=== PATIENT | male | born 1970 | race Caucasian/White ===

== ENCOUNTER 2017-01-29 08:56 | Inpatient (IN) ==
[2017-01-29] MEDS ORDERED: LABETALOL IV ONE (09:17)
[2017-01-29] MEDS ORDERED: COZAAR PO ONE (09:18)
[2017-01-29] MEDS ORDERED: NORVASC PO ONE (09:18)
--- NOTE | 2017-01-29 09:44 | Diag Imaging Result Doc PS360 ---
EXAM: CHEST-PORTABLE HISTORY: sob/cp TECHNIQUE: Portable upright AP COMPARISON: None. FINDINGS: The heart is not enlarged. The vessels are not distended. There is atelectasis or an infiltrate in the left base with a small left pleural effusion. IMPRESSION: Left basilar atelectasis with possibly and underlying infiltrate and a small left pleural effusion. Electronically signed by Tank Garvin 01/29/2017 9:42 AM
[2017-01-29 09:47] LABS: BASO% 0.1 % (0.0-0.8); EOS# 0.04 X1000 (0.0-0.7); EOS% 0.3 % (0.0-10.0); HEMATOCRIT 19.5 % (42.0-52.0); IMM GRAN# 0.03 X1000 (0.0-0.04); IMM GRAN% 0.2 % (0.0-0.5); LYMPH# 0.82 X1000 (1.2-3.4); LYMPH% 6.1 % (20.5-51.1); MANUAL DIFF NEEDED? NO; MCH 30.6 PG (27-31); MCHC 35.9 g/dL (33-37); MCV 85.2 FL (81-99); MONO# 0.97 X1000 (0.11-0.59); MONO% 7.2 % (1.7-9.3); MPV 10.5 FL (7.4-10.4); NEUT% 86.1 % (42.2-75.2); PLT 131 X1000 (130-400); RBC 2.29 XMIL (4.7-6.1)
[2017-01-29] MEDS ORDERED: NS 1,000 ML IV ONE (10:02)
--- NOTE | 2017-01-29 10:23 | PROVIDER DOCUMENTATION ---
This chart was entered by Adwoa Reese Scribe, acting as scribe for Yoseph Amaya MD. HPI-Chest Pain - General Chief Complaint: B/P Problems Stated Complaint: elevated bp Time Seen by Provider: 01/29/17 09:10 Source: patient Allergies/Adverse Reactions: Patient Allergies Allergy/AdvReac Type Severity Reaction Status Date / Time No Known Allergies Allergy Verified 01/29/17 09:47 Home Medications: Home Medication List Medication Instructions Recorded Confirmed Last Taken Type NK [No Home Medications] 01/29/17 01/29/17 Unknown History - History of Present Illness-CP Nature of Presenting Problem: Pt is a 46 y/o M presents to the ED with chest pain. Pt states having elevated blood pressure this am. Pt states has been out of HTN medication for 2 mths. Pt denies SOB. Pt denies NV. Pt denies smoking and alcohol use. Location: reports: central Chest Pain Radiation: reports: no radiation Quality of Pain: reports: aching Severity in ED: mild Onset/Duration: other (2 mths) Timing: still present, intermittent Context/Activities at Onset: reports: light activity Modifying Factors: improves with: nothing Associated Symptoms: reports: denies symptoms Nitro Today/Relief: no nitro taken today Aspirin Treatment Today: no aspirin today Similar Symptoms Previously?: Yes (present for 2 mths ) Recently Seen Here or By Another Healthcare Provider: No Review of Systems - Adult - REVIEW OF SYSTEMS - ADULT Constitutional: reports: no symptoms reported Eyes: reports: no symptoms reported Ears, Nose, Mouth & Throat: reports: no symptoms reported Cardiovascular: reports: chest pain, irregular heart rate (tachy). denies: heart murmur Respiratory: reports: no symptoms reported Gastrointestinal: reports: no symptoms reported Genitourinary: reports: no symptoms reported Musculoskeletal: reports: no symptoms reported Integumentary: reports: no symptoms reported Neurological: reports: no symptoms reported Psychiatric: reports: no symptoms reported Endocrine: reports: no symptoms reported Hematologic/Lymphatic: reports: no symptoms reported Allergic/Immunologic: reports: no symptoms reported All Other Systems: Reviewed and Negative Past History - Adult - PAST MEDICAL HISTORY-ADULT Review of Records: reports: Nursing Assessment Review, Medications Reviewed, Social history reviewed & non-contributory. Major Childhood Illnesses: reports: denies history Cardiovascular: reports: HTN Respiratory: reports: denies history Gastrointestinal: reports: denies history Obstetrical/Gynecological: reports: denies history Genitourinary: reports: kidney disease Musculoskeletal: reports: denies history Neurological: reports: denies history Psychiatric: reports: denies history Endocrine/Immune: reports: denies history Other Conditions: reports: denies history - PRIOR SURGERIES/PROCEDURES Surgical/Procedure History: reports: reviewed, not pertinent - IMMUNIZATION STATUS Childhood Immunizations: See Nurse Assessment Flu Vaccine: See Nurse Assessment - FAMILY HISTORY Family History: reviewed, not pertinent - SOCIAL HISTORY Smoking: quit less than 1 year, cigarettes Substance Use: denies Living Situation: family Physical Exam-General - PHYSICAL EXAM-ADULT Initial Vital Signs Reviewed: Yes - CONSTITUTIONAL General Appearance: appears well, alert, no apparent distress. negative: lethargic, slow to respond - EYES Eyes: PERRL/EOMI, pink conjunctivae. negative: pale conjunctivae, sunken eyes - HEAD, EARS, NOSE, MOUTH & THROAT HENMT: normal ENT inspection. negative: angioedema, hearing deficit - NECK Neck: normal inspection. negative: lymphadenopathy, tender lateral - RESPIRATORY Respiratory: chest non-tender, lungs clear, normal breath sounds. negative: crackles, rhonchi - CARDIOVASCULAR Cardiovascular: normal peripheral pulses, tachycardia. negative: regular rate, rhythm, systolic murmur - GASTROINTESTINAL (ABDOMEN) Abdominal Exam: normal bowel sounds, non tender, soft. negative: guarding, rebound - LYMPHATIC Lymphatic: no adenopathy. negative: enlargement, streaking - MUSCULOSKELETAL Back Exam: normal inspection. negative: ecchymosis, swelling Extremity: normal inspection. negative: deformity, erythema, swelling - SKIN Integumentary: normal color, normal turgor, warm/dry. negative: diaphoresis, ecchymosis, erythema, laceration(s), rash - NEUROLOGIC Neurologic: grossly normal. negative: aphasia, facial droop - PSYCHIATRIC Psych/Mental Status: normal mood/affect, oriented x 3. negative: paranoid, tearful Progress - PLAN OF CARE/RESULTS Progress/Plan/Lab Results: Vital Signs - 8 hr 01/29/17 09:01 01/29/17 09:38 01/29/17 09:46 Temperature 98.1 F Pulse Rate 120 H 91 H 67 Respiratory Rate 18 18 20 Blood Pressure 192/119 189/117 148/91 O2 Sat by Pulse Oximetry 100 99 97 Laboratory Results - last 24 hr 01/29/17 09:29 WBC 13.54 H RBC 2.29 L Hgb 7.0 L Hct 19.5 L MCV 85.2 MCH 30.6 MCHC 35.9 RDW Std Deviation 12.4 Plt Count 131 MPV 10.5 H Immature Gran % (Auto) 0.2 Neut % (Auto) 86.1 H Lymph % (Auto) 6.1 L [place] % (Auto) 7.2 Eos % (Auto) 0.3 Baso % (Auto) 0.1 Immature Gran # (Auto) 0.03 Neut # (Auto) 11.67 H Lymph # (Auto) 0.82 L [place] # (Auto) 0.97 H Eos # (Auto) 0.04 Baso # (Auto) 0.01 Orders Category Date Time Status Cardiac Monitoring DIRECTED Care 01/29/17 09:16 Active Saline Loc NOW Care 01/29/17 09:16 Active CHEST-PORTABLE [RAD] Stat Exams 01/29/17 09:17 Completed BLOOD CULTURE [BLDCUL] Stat Lab 01/29/17 09:58 Uncollected CBC WITH ELECTRONIC DIFF [HEME] Stat Lab 01/29/17 09:29 Completed CK PROFILE [SP CHEM] Stat Lab 01/29/17 09:29 Received COMPREHENSIVE METABOLIC PANEL [CHEM] Stat Lab 01/29/17 09:29 Received PRBC [LRPC (RED CELLS)] [BBK] Stat Lab 01/29/17 10:01 Uncollected PRO B-NATRIURETIC PEPTIDE Stat Lab 01/29/17 09:29 Received TROPONIN T Stat Lab 01/29/17 09:29 Received TYPE & SCREEN [BBK] Stat Lab 01/29/17 10:00 Uncollected 0.9% Sodium Chloride Inj [Ns] 1,000 ml Med 01/29/17 10:02 Active IV 150 mls/hr Amlodipine [Norvasc] Med 01/29/17 09:18 Discontinued 5 mg PO NOW ONE Labetalol Med 01/29/17 09:17 Discontinued 20 mg IV NOW ONE Losartan [Cozaar] Med 01/29/17 09:18 Discontinued 100 mg PO NOW ONE EKG [EKG] Stat Ther 01/29/17 09:16 Ordered Result Diagrams: 01/29/17 09:29 - EKG 1 Time of EKG reading by physician:: 09:01 EKG Read and Signed by:: Yoseph Amaya EKG Interpretation (*Must complete 3 of following elements*): Abnormal Rate: 109 Rhythm: sinus tachycardia Comments: voltage criteria for left ventricular hypertrophy - XRAY 1 XRAY Study: Chest Impression: Abnormal (Left basilar atelectasis with possibly and underlying infiltrate and a small left pleural effusion) - CONSULTS/PCP/HOSPITALIST Notification #1 *Consult/PCP/Hospitalist*: DAVIDSON Carter for Hospitalist Time Discussed: 10:04 (Dr. Moncada accepted admit ) Reason/Comments: Dr. Amaya consults with LINDA Carter about Pt Consult Disposition: Admit Departure - Departure Date of Disposition Decision: 01/29/17 Time of Disposition Decision: 10:05 DIAGNOSIS: Anemia, Pleural effusion, left Disposition: ADMITTED INPATIENT 09 Certified Medical Emergency: Emergent Condition: Stable Referrals and Follow-Ups: Hillary Yin MD [Primary Care Provider] - - Critical Care Note This patient required my direct & personal management of CC.: Yes Total Time (mins): 30 Critical Care Statement: This patient required my direct personal management to treat or rule out processes, the absence of which, could potentiallly result in sudden, clinically significant life or limb threatening deterioration. Attestation - Physician/ CHEMO Attestation Patient care was provided by Advanced Practice Provider:: No The physician spent face to face time with patient:: Yes Advanced Practice Provider documentation review:: Supervising physician onsite and consulted in the evaluation and care of this patient. The physician did have a face to face encounter with the patient. This chart was documented by the indicated scribe, (Adwoa Reese Scribe) and accurately reflects the services I performed and decisions made by me, Yoseph Amaya MD, as attested by the provider's signature.
[2017-01-29 10:27] LABS: ALBUMIN 4.1 g/dL (3.5-5.0); POTASSIUM 3.7 mmol/L (3.5-5.1); TOTAL BILIRUBIN 0.46 mg/dL (0.20-1.00); TOTAL PROTEIN 6.4 g/dL (6.3-8.3)
[2017-01-29 10:34] LABS: CALCIUM 6.4 mg/dL (8.8-10.2)
[2017-01-29 10:54] LABS: CK INDEX 0.3 (0.0-2.5); CK-MB 3.21 ng/mL (0.0-5.0)
[2017-01-29 11:43] LABS: IRON SATURATION 9 %; TIBC 223 ug/dL; TOTAL IRON 21 ug/dL (53-167); UNBOUND IRON 202 ug/dL (112-346)
[2017-01-29 11:44] LABS: ACETAMINOPHEN < 1.2 ug/mL (10-30); HDL 37 mg/dL (35-55); LDL 113 mg/dL; TRIGLYCERIDES 145 mg/dL (39-160); VLDL 29 mg/dL
[2017-01-29 11:46] LABS: MAGNESIUM 2.1 mg/dL (1.5-2.7)
[2017-01-29 11:53] LABS: FREE T4 1.03 ng/dL (0.93-1.70)
[2017-01-29] MEDS ORDERED: CALCIUM GLUCONATE IV PUSH ONE (12:11)
[2017-01-29] MEDS ORDERED: ASPIRIN PO ONE (12:12)
[2017-01-29] MEDS ORDERED: CALCIUM GLUCONATE 2 GM in NS 100 ML IV ONE ×2 (12:15→12:30)
--- NOTE | 2017-01-29 12:35 | EKG Report ---
Test Performed on : 01/29/2017 09:01:10 AM Test Reason : Chest Pain Blood Pressure : / mmHG Vent. Rate : 109 BPM Atrial Rate : 109 BPM P-R Int : 124 ms QRS Dur : 076 ms QT Int : 378 ms P-R-T Axes : 021 009 023 degrees QTc Int : 509 ms Sinus tachycardia. Voltage criteria for left ventricular hypertrophy Abnormal ECG No previous ECGs available Unconfirmed Result
[2017-01-29] MEDS: SODIUM BICARBONATE 8.4% 150 MEQ in D5W 1,000 ML IV SCH (13:36)
--- NOTE | 2017-01-29 14:32 | Diag Imaging Result Doc PS360 ---
US RENAL 2 (RETROPER) COMPLETE - 01/29/2017 INDICATION: tulio on ckd TECHNIQUE: COMPARISON: 05/25/2014, 04/13/2014 FINDINGS: The kidneys are diffusely, severely hyper echogenic now. Renal sizes remain grossly normal. No hydronephrosis or mass. The right kidney measures 9.8 x 3.2 x 3.3 cm. The left kidney measures 10.2 x 3.6 x 4.5 cm. Cortex measures 7 mm bilaterally. The urinary bladder is normal. IMPRESSION: Severe bilateral hyperechogenic kidneys compatible with chronic medical renal disease. Electronically signed by Jhoan Cooper 01/29/2017 2:30 PM
--- NOTE | 2017-01-29 14:48 | HISTORY AND PHYSICAL ---
PCP: Dr. Hillary Yin. CHIEF COMPLAINT: Hypertension and lower back pain. HISTORY OF PRESENT ILLNESS: Mr. Major is a 46-year-old male with a history of IgA nephropathy and hypertension, which is untreated. The patient reports having been followed by Dr. Bangura for the past few years for IgA nephropathy. He has been on antihypertensives and steroids. However, over the past year, he stopped taking his medications as he felt he was doing much better in regards to his blood pressure and "kidney numbers." Over the past 2 or 3 days, he has been complaining of some mid to low back pain, which is intermittent in nature and nonradiating. He actually went to the chiropractor today for evaluation. Chiropractor examined him, did a blood pressure and sent him to the ER, as it was greater than 200/ 100. The patient has also been reporting some orthopnea, PND, and exertional dyspnea. He denies, however, any lower extremity edema or chest pain. When he got to the ER today, he had labs and diagnostics done. His creatinine was noted to be 21.8 with a BUN of 140 with a estimated GFR of 2. He was also noted to be acidotic and anemic. Troponins were also noted to be 0.326. Creatine kinase 91 with a normal index and a proBNP of greater than 35,000. EKG did not show any signs of ischemia, otherwise LVH noted. Chest x-ray showed small left pleural effusion. Given the severity of his renal failure, we are going to put him in the ICU step-down , consult with Dr. Bangura. PAST MEDICAL HISTORY: 1. IgA nephropathy. 2. Hypertension. 3. Medical noncompliance. SURGICAL HISTORY: Renal biopsy. SOCIAL HISTORY: Patient quit smoking 7 years ago. He denies alcohol, tobacco, or drug use currently. He has 1 child, whom he lives with and works at [employer]. FAMILY HISTORY: Father is at the bedside. He has no medical problems. Mother with a history of arthritis. He has a distant history of hypertension and CVA. REVIEW OF SYSTEMS: Fourteen-point review of systems obtained and found to be negative with the exception of the HPI. HOME MEDICATIONS: None. ALLERGIES: None. PHYSICAL EXAMINATION: VITAL SIGNS: Blood pressure is 153/104, heart rate 70, respiratory rate 18, O2 saturation 95% on room air, temperature is 98.1 degrees. GENERAL: This is a chronically ill-appearing 46-year-old male, lying in hospital bed in no acute distress. NEUROLOGIC: The patient is awake, alert, and oriented. He follows commands without focal deficits. HEENT: Head is atraumatic and normocephalic. His pupils are equal, round, and reactive to light. Conjunctiva are pale. Oral mucosa is a bit dry and pale. Oropharynx is clear. Trachea is midline. There is JVD noted with hepatic jugular reflux. CHEST: Diminished at the bases, otherwise clear to auscultation. CARDIOVASCULAR: Regular rate and rhythm. S1, S2 is noted. No murmurs. GI: Soft, nondistended, and nontender. Bowel sounds positive. EXTREMITIES: No edema, clubbing, or cyanosis. Pulses 1+ bilaterally. DIAGNOSTIC DATA: Chest x-ray: Small left pleural effusion. EKG: Sinus rhythm , LVH. No acute ST or T abnormalities. WBC 13.54, hemoglobin 7, hematocrit 19.5, platelet count 131, sodium 132, potassium 3.7, chloride 86, CO2 16, anion gap 30, BUN 140, creatinine 21.8. Calcium 6.4. T bilirubin 0.46, AST 17, ALT 11, alkaline phosphatase 7.6. CK 921, troponin 0.326. ProBNP greater than 35,000. Albumin 4.1. ASSESSMENT AND PLAN: 1. Acute on chronic renal failure: This is likely secondary to medical noncompliance and IgA nephropathy. We are going to check comprehensive urine studies and renal ultrasound and consult with Dr. Bangura. He is anemic, but his potassium is acceptable. He is acidotic for which we are starting a bicarbonate drip. 2. Back pain with elevated troponins: We are going to check an echocardiogram and consult Cardiology. It is unlikely that his troponins are 2/2 true coronary ischemia , but rather volume overload 2/2 renal failure. With that said, we will trend troponins and order an aspirin. 3. Normocytic anemia: This is likely secondary to his chronic kidney disease. He denies any melena or abdominal pain for that matter. Occult testing is negative. We are checking iron studies. He has been typed and crossed for 2 units as well. 4. Left-sided pleural effusion: Again, this is likely secondary to volume overload with renal failure. Dr. Bangura has been consulted. The patient will likely need dialysis, which should alleviate this issue. 5. Elevated anion gap metabolic acidosis: Again, likely secondary to renal failure but we will go ahead and order acetone, acetaminophen, lactic acid, and the venous blood gas. 6. Hypocalcemia: This is with a normal albumin. So we will go ahead and give him 2 amps of calcium gluconate. Check vitamin D, phosphorus, and magnesium levels as well. 7. Deep venous thrombosis prophylaxis. We will add sequential compression devices and thromboembolic prophylaxis consists of graduated support stockings given the fact that he might need a tunneled dialysis catheter. Once that is done, we can start him on heparin. Dictated by DAVIDSON Alexis for Gopi Perez MD Addendum: Patient seen and examined by myself. Agree with DAVIDSON note. It reflects my assessment and plan. Patient admitted for worsening renal failure and back pain. Patient was being followed by Dr. Bangura for IgA nephropathy but he skip his appointments. Will get Dr. Bangura on board. Because of anemia will order 2 units of blood. Will replete calcium as well. Will continue to monitor closely. cc: DAVIDSON Alexis MD [facility]
[2017-01-29 17:06] LABS: ALLEN TEST YES; BE -7.3 mmoll (-3.0-3.0); BLOOD TYPE ARTERIAL; DRAW SITE R RADIAL; METHB 0.7 % (0.0-1.5); O2(CT) 10.2 mL/dL (15.0-23.0); PCO2(98.6) 26 mmHg (35-45); PO2(98.6) 73 mmHg (60-100); SAMPLE BLOOD; THB 7.5 g/dL (11.5-17.4); pH(98.6) 7.41 (7.35-7.45)
[2017-01-29 17:08] LABS: MODALITY ROOM AIR
--- NOTE | 2017-01-29 17:28 | CONSULTATION ---
DATE OF CONSULTATION: 01/29/2017 IMPRESSIONS: 1. Atypical chest discomfort. 2. Abnormal cardiac enzyme profile with CPK of 921 with a CK-MB of 3.21 and an index of 0.3. Troponin nonspecific elevated. Suspect noncardiac profile. 3. Renal failure. 4. Reported history of IgA nephropathy. 5. Hypertension, poorly controlled. 6. Noncompliance. RECOMMENDATIONS: 1. Followup serial cardiac enzymes. 2. Echocardiography. 3. PA and lateral chest x-ray. HISTORY: This 46-year-old white male with a past history of vasculitis, IgA nephropathy, and hypertension was admitted because of severe hypertension. He actually started having severe back discomfort yesterday. Discomfort is described as dull and in the posterior thorax. Discomfort seemed to be worse lying down and also worse with deep breath. He went to a chiropractor for evaluation and was noted to be markedly hypertensive. He was subsequently referred to the emergency room. His chest discomfort has improved. His back discomfort has improved. He has not done anything strenuous over the past several days. He has not had any vomiting or diarrhea. He has been out of any hypertensive medications for several months. He relates having some blood work done for an infection a few years ago and was found to have kidney disease. He had evaluation which included a renal biopsy and reportedly had vasculitis. PAST MEDICAL HISTORY: 1. 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 2. Hypertension. 3. Medical noncompliance. MEDICATIONS: Prior to admission as listed. He has been out of his antihypertensive medication for several months now. ALLERGIES: No known drug allergies. SOCIAL HISTORY: He works at [employer] in the [place]. He does not smoke, having quit 7 years ago. He does not use alcohol. FAMILY HISTORY: Negative for premature coronary disease. REVIEW OF SYSTEMS: Pulmonary: Negative for dyspnea or cough. Gastrointestinal: Noncontributory beyond history present illness. Constitutional: Noncontributory beyond history of present illness. Remainder of review of systems negative/noncontributory beyond history present illness with 14 total systems reviewed. PHYSICAL EXAMINATION: General: This is a well-developed, adult male, in no distress, on room air. Vital signs: Blood pressure 147/93, heart rate 90. HEENT: Extraocular movements appear intact. Mucous membranes are moist. Neck: Supple with normal jugular is pressure evident on inspection of the neck veins. Chest: Clear to auscultation. Cardiac Exam: Reveals a regular rate and rhythm without appreciable murmur or gallop. Abdomen: Soft, nontender. Extremities: Without edema. Peripheral pulses are intact symmetrically and bilaterally in both radials and pedal pulses, as well as carotid pulses. Neurologic: Reveals him to be alert, fully oriented. Speech is fluent. Moves all 4 extremities equally well. Skin: Warm and dry. Psychiatric: Reveals mood to be appropriate. DIAGNOSTIC DATA: ECG demonstrates sinus rhythm and voltage criteria for left hypertrophy. LABORATORY DATA: Includes BUN 140, creatinine 21.8, calcium 6.4, albumin 4.1, phosphorus 11.1. CPK 921, CPK-MB 3.21, CPK-MB index 0.3. Troponin T 0.331. cc: Moe Bautista MD
--- NOTE | 2017-01-29 18:12 | CONSULTATION ---
DATE OF CONSULTATION: 01/29/2017 REASON FOR ADMISSION: Hypertension. REASON FOR CONSULTATION: Acute kidney injury. CONSULTING PHYSICIAN: Dr. Amaya. HISTORY OF PRESENT ILLNESS: Mr. Major is a 46-year-old white male who is known to our outpatient services for chronic kidney disease stage 4. Patient was last seen in our office in August 2015. At that time he was under our treatment for nephrotic syndrome secondary to IgA nephropathy. Patient's blood pressure had been controlled on diltiazem, losartan hydrochlorothiazide and spironolactone. He was also given Lasix 40 mg b.i.d. for his swelling. His initial proteinuria was 13 g. During the visit his labs indicated his microalbumin protein level was 2.7 g. He was to continue on prednisone weaning himself from 20 mg daily down to 5 mg and to be followed up in our office in April. Patient had cancelled that appointment and no further appointments were made. Upon questioning the patient, he indicated that he had quit taking his prednisone at that time. He also had quit taking his blood pressure medications about the same period of time. He states that he has been feeling well up to this point at which time he says last Sunday he started with nausea and vomiting. This continued through Sunday and states he started feeling better. He developed a mid back pain, new onset by Sunday. He states that this was not getting better and he went to see his chiropractor this a.m. His mother had driven him secondary to patient being weak. She asked them to take his blood pressure and it was found to be severely elevated. The chiropractor recommended that he be taken to [facility] for evaluation. Once in the emergency room, it was found that his BUN was 140 with a creatinine of 21.8, CPK of 921, elevated troponins, low calcium of 6.4, hemoglobin 7, white count 13.54. Chest x-ray showed left pleural effusions with questionable infiltrates bilateral. Patient has not been taking his blood pressure medications according to him. This has been for at least the last 2-3 months. Upon further questioning he thinks it may have been closer to April the last time he was taking his blood pressure medications. He has a history of hypertension. Blood pressure upon evaluation was 153/104. He was given Cozaar 100 mg p.o. in the emergency room along with labetalol. He was given calcium gluconate for his calcium of 6.4. He is currently receiving an IV bolus of 500 mL normal saline and then is to be started on D5W with 3 amps of sodium bicarbonate at 75 ml/hr. Patient is currently lying in bed. His family is at the bedside. He denies chest pain though he did state that yesterday he had a new onset of chest pain without radiation. Some increased work of breathing associated with this and slight diaphoresis. He did not present with these symptoms to the emergency department. He felt that this might be getting better. Upon further questioning, he has no further nausea or vomiting in the last 24 hours. New onset chest pain with increased work of breathing. No increased lower extremity swelling. No fever or chills, no diarrhea, nausea or emesis. PAST MEDICAL HISTORY: Patient has known chronic kidney disease stage 4, last baseline creatinine of 2.94 from labs on 12/28/2015, history of hypertension, nephrotic syndrome, anemia of chronic disease, iron deficiency anemia, heavy proteinuria, noncompliance. SURGICAL HISTORY: None noted. FAMILY HISTORY: Maternal grandmother has history of hypertension, cardiac disease, previous stroke. Maternal uncle has a previous stroke. No noted kidney disease. SOCIAL HISTORY: The patient is a previous smoker, quit approximately 1 year ago. Denies any alcohol or illicit drug use. Lives with family. ALLERGIES: Listed as no known drug allergies. HOME MEDICATIONS: Patient is currently on no home medications. Previous medication list in our office was listed as spironolactone, Zocor, omeprazole, diltiazem, vitamin D 3, Lasix, Tums, prednisone, clonidine, losartan hydrochlorothiazide, Taztia XT, and he was to started on ferrous sulfate. REVIEW OF SYSTEMS: Times 10 with pertinent positives listed above in the HPI. PHYSICAL EXAMINATION: Vital Signs: Temperature 98.1 degrees, blood pressure 147/93, heart rate 90s, respiration 18. He is currently on room air, last recorded saturation 95% . General: This is a 46-year-old white male. He is currently resting in bed. He appears chronically ill though he is in no acute distress. Skin: Warm and dry. HEENT: Normocephalic, atraumatic. Conjunctiva is very pale. Pupils are equal and reactive to light. Mucous membranes are dry. Neck: Supple. Trachea midline. No evidence of JVD. Cardiovascular: Regular rate and rhythm. No murmur or gallop appreciated. Lungs: Clear to auscultation anteriorly. Equal excursion. He remains on room air. Abdomen: Round, soft, nontender. Positive bowel sounds. Extremities: Have no edema. No clubbing or cyanosis. Genitourinary: Not inspected. Patient states that he has been voiding adequate amounts. Neurological: He is alert and oriented x 3. LABS: Sodium 132, potassium 3.7, chloride is 86, CO2 16, BUN 140, creatinine 21.8, glucose 103. His anion gap is 30, calcium 6.4, phosphorus 11.1, albumin 4.1, magnesium 2.1. White count 13.54, hemoglobin 7, hematocrit 19.5 with a platelet count of 131,000. Patient has an elevated CPK of 921, positive troponin. EKG completed in ER shows low voltage with sinus tachycardia. Chest x- ray completed shows left pleural effusions with questionable bilateral infiltrates to the bases. Consult has already been placed to Dr. Bautista for cardiology and our office for nephrology[place] [address], percent saturations of 9 with a ferritin of 1271. TSH 2.46 , free T4 1.03. Urine electrolytes are pending. Urine eosinophils are pending. Renal ultrasound pending. ASSESSMENT AND PLAN: 1. Acute kidney injury on chronic kidney disease stage 4. Patient has not been seen in our office in the past year secondary to cancellations. He has been noncompliant in continuing his medications. He is now hypertensive. We are awaiting urine electrolytes. He has his blood pressure better controlled. He have IV fluid resuscitation in progress. We will check a renal ultrasound. We will make the patient NPO this evening and we will re- evaluate his labs. Secondary to his noncompliance and worsening of his renal function, we have indicated that if there is no improvement in the morning, he may possibly need to have a tunnel catheter placed and start the patient on hemodialysis. Patient states understanding. There is a very little affect in regards with this statement, though he does state understanding. 2. Electrolytes. These basically remain stable. 3. Acid base balance. Patient is to be started on sodium bicarbonate drip at 75 mL an hour. 4. Anemia. Patient has 2 units of packed red blood cells ordered. 5. Chest pain with onset of shortness of breath and diaphoresis. Dr. Bautista is currently waiting to go into the room to talk with the patient. Echocardiogram has been ordered. EKG: Sinus tachycardia, nonspecific. 6. Hypertension. Patient has been treated with Norvasc, labetalol and Cozaar in the emergency room, and is slowly responding. No indications for intervention from our perspective. I would like to thank you for allowing us to follow with this patient. Dictated by DAVIDSON Pittman for Kwan Bangura MD Data reviewed, discussed with Luis Angel Loredo on 01/29/17. I agree with the above assessment and plan of care. cc: DAVIDSON Pittman MD [facility]
[2017-01-29 23:46] LABS: CK INDEX 0.4 (0.0-2.5); CK-MB 2.6 ng/mL (0.0-5.0)
[2017-01-30] MEDS: SODIUM BICARBONATE 8.4% 150 MEQ in D5W 1,000 ML IV SCH ×2 (03:29→19:13)
[2017-01-30 03:42] LABS: INR 1.08; PROTIME 11.4 Seconds (9.2-11.7)
[2017-01-30 03:57] LABS: HEMATOCRIT 23.3 % (42.0-52.0); HEMOGLOBIN 8.5 g/dL (14.0-18.0); MCH 30.5 PG (27-31); MCHC 36.5 g/dL (33-37); MCV 83.5 FL (81-99); MPV 10.9 FL (7.4-10.4); RBC 2.79 XMIL (4.7-6.1)
[2017-01-30 04:17] LABS: CK INDEX 0.3 (0.0-2.5); CK-MB 2.15 ng/mL (0.0-5.0)
[2017-01-30 04:21] LABS: ALBUMIN 3.2 g/dL (3.5-5.0); POTASSIUM 3.3 mmol/L (3.5-5.1)
[2017-01-30 04:30] LABS: CALCIUM 5.9 mg/dL (8.8-10.2)
[2017-01-30] MEDS ORDERED: CALCIUM GLUCONATE 2 GM in NS 100 ML IV ONE (06:00)
--- NOTE | 2017-01-30 08:20 | PROGRESS NOTE ---
DATE: 01/30/2017 SUBJECTIVE: Patient reports feeling fine. Denies any difficulty in breathing. She has some chest tightness, not requiring any oxygen supplementation. OBJECTIVE: Vital Signs: Temperature 98.6, heart rate 97, respiratory rate 12, blood pressure 176/100, O2 sats 93% on room air. General: This is a chronically ill-looking 46-year-old male, lying in bed, in no acute distress. HEENT: Head is normocephalic and atraumatic. Neck: Supple. No JVD noted. No carotid bruits. No lymphadenopathy. Cardiovascular Exam: S1, S2 heard. No murmurs, gallops, or rubs. Regular rate and rhythm. Respiratory: Clear bilaterally to auscultation. No work of breathing. He is not using any accessory muscles. Abdomen: Soft, nontender to palpation. Bowel sounds present. No organomegaly. Extremities: No clubbing, cyanosis, or edema. Peripheral pulses present in both legs. Neurological: Patient alert and oriented x3. Moves 4 extremities. Cranial nerves 2-12 grossly normal. LABORATORY DATA: White cell count 11.02, hemoglobin 8.5, hematocrit 23.3, platelets 153,000. The BMP shows sodium 132, potassium 3.3, chloride 83, bicarbonate 18, BUN 143, creatinine 20.7, calcium 5.9. Troponin is 0.20, and proBNP is greater than 35,000. ASSESSMENT AND PLAN: 1. Acute on chronic renal failure. That is most likely secondary to noncompliance. Patient has been followed by Dr. Bangura for IgA nephropathy. The labs from today did not show any improvement. The patient reports that he is not making any urine for the last 2 days. The renal ultrasound done yesterday shows severe bilateral hyperechogenic kidneys compatible with chronic medical renal disease. There is no obstructive uropathy. I think, at this point, this patient may need dialysis, but will definitely leave the decision to start dialysis. Dr. Bangura's help is appreciated. 2. Chest discomfort. The patient was complaining of chest discomfort that could be secondary to volume overload secondary to acute renal failure. In any case, troponins has been checked, and has been higher. Cardiology has been consulted. We will recommend to continue with follow with serial cardiac enzymes, and an echocardiogram has been ordered. 3. Anemia of chronic disease. It could be most likely related to this chronic kidney disease. He has received 2 units of blood yesterday, and hemoglobin is today 8.5. We will continue checking CBC. 4. Left-sided pleural effusion, most likely secondary to volume overload secondary to renal failure. Dr. Bangura has been consulted. 5. Elevated anion gap metabolic acidosis secondary to renal failure. We will continue to check BMP daily. 6. Hypocalcemia. Patient has received 2 g of calcium gluconate this morning. We are going to check a calcium tomorrow. 7. Deep vein thrombosis prophylaxis on sequential compression devices. cc: Gopi Perez MD
[2017-01-30] MEDS: NORVASC PO SCH ×2 (08:35→21:14)
--- NOTE | 2017-01-30 12:47 | Diag Imaging Result Doc PS360 ---
EXAM: CHEST-2 VIEWS HISTORY: chest pain TECHNIQUE: Two views COMPARISON: 01/29/2017 FINDINGS: There are small bilateral pleural effusions with basilar atelectasis. The heart is not enlarged. The pulmonary vessels are small. No consolidation. IMPRESSION: Small pleural effusions with basilar atelectasis. Electronically signed by Tank Garvin 01/30/2017 12:45 PM
--- NOTE | 2017-01-30 14:10 | PROGRESS NOTE ---
DATE: 01/30/2017 SUBJECTIVE: Patient continues without chest discomfort or dyspnea. OBJECTIVE: Vital Signs: Blood pressure 151/92, heart rate 103 and regular. Oxygen saturation 92% on room air. There is no significant jugular venous distention. Chest: Clear to auscultation. Cardiac Exam: Reveals a regular rate and rhythm without appreciable murmur or gallop. There is no evidence of peripheral edema. LABORATORY DATA: Includes followup CPK 643, CPK MB 2.15 and CPK MB index of 0.3. Troponin followup is 0.249. Echocardiography pending. IMPRESSION: 1. Recent atypical back discomfort. Resolved. 2. Abnormal cardiac enzyme profile most consistent with noncardiac etiology. 3. Renal failure with 2 reported history of IgA nephropathy. 4. Hypertension. RECOMMENDATIONS: Follow up echocardiography. cc: Moe Bautista MD
--- NOTE | 2017-01-30 15:32 | ECHO REPORT ---
ORDER DATE: 01/29/2017 INDICATION: Chest pain. Elevated blood pressure. Elevated cardiac enzymes. Anemia. FINDINGS: 1. Right atrium is normal in size at 3.5 cm. 2. Mild tricuspid regurgitation. RV systolic pressure of 41. 3. Normal RV size and systolic function. 4. Mild pulmonic insufficiency. 5. Normal left atrial size at 3.6. 6. No mitral valve prolapse. Moderate mitral regurgitation is identified. 7. Normal LV size, end-diastolic dimension of 4.6. Normal wall thicknesses with a posterior and interventricular septal thickness of 1 cm each. There is borderline normal LV systolic function. The estimated EF is 50%. There are no obvious segmental wall motion abnormalities. 8. The aortic valve opens well. It is trileaflet. No evidence of stenosis or insufficiency. 9. The aorta appears normal in visualized segments. 10. There is a suggestion of a very small pericardial effusion which is primarily in the anterior position. There is no evidence of tamponade-type physiology. cc: MD Saji Young CRNP
[2017-01-31 05:40] LABS: HEMATOCRIT 24.5 % (42.0-52.0); HEMOGLOBIN 8.9 g/dL (14.0-18.0); MCHC 36.3 g/dL (33-37); MCV 85.4 FL (81-99); MPV 10.4 FL (7.4-10.4); RBC 2.87 XMIL (4.7-6.1)
[2017-01-31 06:17] LABS: ALBUMIN 3.2 g/dL (3.5-5.0); POTASSIUM 3.2 mmol/L (3.5-5.1)
--- NOTE | 2017-01-31 06:18 | PROGRESS NOTE ---
DATE: 01/30/2017 TIME SEEN: 0800. SUBJECTIVE: Mr. Major is resting quietly in bed. Head of the bed is elevated. He remains n.p.o. His parents are at his bedside. He denies chest pain. No increased work of breathing. OBJECTIVE: His most recent vital signs: Temperature 98.8 degrees, blood pressure 161/92, heart rate 91, respirations 18. He is on room air. Last recorded saturation 93%. He has had 1657 he states that he has not voided since his admission. LABORATORY DATA: Sodium 132, potassium 3.3, chloride 83, CO2 of 18, BUN 143, creatinine 20.7, glucose 109. Anion gap 18 calcium 5.9, phosphorus 11, albumin 3.2. White count 11.02, hemoglobin 8.5, hematocrit 23.3, with a platelet count of 153,000. His ProTime is 11.4. INR 1.08 ABGs: pH 7.41, CO2 of 26, PO2 of 73, bicarb 19.2 on room air. PHYSICAL EXAMINATION: General: This is a 46-year-old white male. He is currently resting in bed. He appears in no acute distress. He does not appear chronically ill although he states that he remains weak. HEENT: Normocephalic, atraumatic, conjunctiva is pale. He has CHANTELL. Mucous membranes are dry. Neck: Supple. Trachea midline. No evidence of JVD. Cardiovascular: Regular rate and rhythm. He is without murmur or gallop. Lungs are clear to auscultation anteriorly. Equal excursion. He remains on room air. Abdomen is soft, nontender. Positive bowel sounds. Extremities have no edema. No clubbing or cyanosis. Integumentary: No rashes or lesions evident.Neurological: Alert and oriented x3. ASSESSMENT AND PLAN: 1. Acute kidney injury on chronic kidney disease stage 4. The patient's BUN and creatinine continue elevated. He has had no urine out. We have discussed continuing to keep the patient n.p.o. and possible referral for surgery for placement of tunnel catheter and to start hemodialysis either today or tomorrow. The patient states understanding. His family states understanding. 2. Electrolytes. Patient has mild hypokalemia. No indications for intervention at this time. 1. Acid-base balance. This remains stable. 2. Anemia. This has improved after transfusion yesterday. 3. Hypertension. This has slowly improved with his current medications. Again we have kept him n.p.o. except for medications. I would like to thank you for allowing us to follow with this patient. Dictated by DAVIDSON Pittman for Kwan Bangura MD Patient seen, data reviewed, discussed with Luis Angel Loredo on 01/30/17. I agree with the above assessment and plan of care. cc: DAVIDSON Pittman MD [facility]
[2017-01-31] MEDS: NORVASC PO SCH ×2 (08:06→21:09)
[2017-01-31] MEDS ORDERED: TIGHT: 0.2 ML/HR MISC PRN (08:22)
[2017-01-31] MEDS ORDERED: NS 2,000 ML MISC PRN (08:22)
[2017-01-31] MEDS ORDERED: HEPARIN IV PRN (08:22)
--- NOTE | 2017-01-31 09:14 | PROGRESS NOTE ---
DATE: 01/31/2017 SUBJECTIVE: This is a 46-year-old, who was admitted on 01/29/[address] Bangura and Dr. Bautista, are following Nephrology and Cardiology. His primary care doctor is Hillary Yin. He presented with hypertension lower back pain. A 46-year-old, history of IgA nephropathy and hypertension, which is untreated. He was followed by Dr. Bangura the past few years for IgA nephropathy. He has been on antihypertensive and steroids. However, the past year, he stopped taking medications and felt to be doing much better in regards to his blood pressure and his kidney numbers. Over the past 2 or 3 days before admission, complaining of some mid lower back pain intermittent in nature and nonradiating. Actually went to a chiropractor for evaluation. Chiropractor examined and did blood pressure, and sent him to the ER. Blood pressure greater than 200/100. Patient reporting some orthopnea and paroxysmal nocturnal dyspnea and exertional dyspnea. Denied any extremity pain. He stated that apparently he had a vasculitis a couple years ago with rash on his legs and that precipitated the IgA nephropathy, his kidney problems. Troponins were little elevated at 0.326. Creatine kinase is 91, normal index with his CPK. ProBNP greater than 35,000. EKG did not show any sign of ischemia, otherwise LVH. Chest x-ray showed small left pleural effusion, so was admitted. PAST MEDICAL HISTORY: 1. Reviewed again, IgA nephropathy. 2. Hypertension. 3. Medical poor compliance suggested on past records. 4. He has had a renal biopsy in the past. The patient states he is feeling better. He is hungry. He understands the plan is to put a catheter in for dialysis. He is breathing comfortably at this point. OBJECTIVE: General: Alert and oriented. Vital signs: Remains afebrile, temperature 98.8 degrees, pulse 97, respirations 18, blood pressure 143/84. Eyes: Pupils are equal. Neck: No distended neck veins. CVP less than 6 cm. Lungs: Anterolateral are clear. Cardiovascular: Regular rate without murmur or S3. PMI nondisplaced. Abdomen: Soft. No pedal edema. Urine output appears to be about 1800 mL from yesterday. LAB FROM THIS MORNING: White count 9140, hematocrit 24, platelet count 183,000. Sodium 132, potassium 3.2, chloride 81, bicarb 24, BUN 152, creatinine 20.9, phosphorus 11, calcium 5.5. ASSESSMENT AND PLAN: 1. Acute on chronic renal failure most likely secondary to his IgA nephropathy. I am not sure about compliance on his medication, but blood pressure elevated. Dr. Bangura is following and apparently, we are going to pursue hemodialysis. BUN and creatinine are elevated. We are going to place a tunnel catheter. Start hemodialysis I believe today. 2. Electrolytes, mild hypokalemia. No indications for intervention at this time. 3. Acid-base and anemia are stable. Bicarbonate is 24 today. 4. He had recent atypical back discomfort resolved. Cardiac enzyme profile consistent with noncardiac etiology. Blood pressure appears better controlled. REVIEW OF HIS ORDERS: He is on amlodipine 5 mg b.i.d. He is getting D5 with bicarb at 150 mEq at 75 mL an hour, and calcium gluconate, he got 1 time 2 g yesterday. cc: Gavin Tucker MD
--- NOTE | 2017-01-31 11:19 | PROGRESS NOTE ---
DATE: 01/31/2017 DATE SEEN: 01/31/2017 TIME SEEN: 8:45 SUBJECTIVE: Mr. Major is sitting quietly in bed. He is NPO. He is waiting to go to surgery for placement of tunnel catheter. He denies chest pain. No increased work of breathing. OBJECTIVE/PHYSICAL EXAMINATION: Vital Signs: Temperature 98.3 degrees, blood pressure 148/82, heart rate 102, respirations 18. He is on room air. Last recorded saturation 95%. He has had 975 in and he has had 0 recorded out for the last 3 days. General: This is a 46-year-old white male. He is resting in bed. He is in no acute distress. Skin: Warm and dry. HEENT: Normocephalic, atraumatic. Conjunctiva is pale. He has CHANTELL. Mucous membranes moist. Neck: Supple. Trachea midline. No jugular venous distention. Cardiovascular: Regular rate and rhythm. He has no murmur or gallop appreciated. Lungs: Clear to auscultation anteriorly. Equal excursion. He is on room air. Abdomen: Round, soft, nontender. Positive bowel sounds. Genitourinary: Not inspected. No void with need for dialysis. Extremities: Have no edema. No clubbing or cyanosis. Integumentary: No rashes or lesions evident. Neurological: Alert and oriented x3. LABS: Sodium 132, potassium 3.2, chloride is 81, CO2 24. BUN 152, creatinine 20.9, glucose 100. Anion gap 27, calcium 5.5, phosphorus 11.2, albumin 3.2. White count 9.14, hemoglobin 8.9, hematocrit 24.5, with a platelet count of 183,000. Blood cultures are negative after 48 hours. ASSESSMENT AND PLAN: 1. CKD5d. Patient has had no urine out in the last 3 days. He has had chronic progression over the last year, even though he has not been seen in our office. It is his understanding we will place a tunnel catheter today per Dr. Roy. He is to start dialysis. We will place him on a 3 K bath. He is to dialyze for 2 hours. We will have a low blood flow and pull the patient even for no ultrafiltration. We will plan for dialysis over the next 2-3 days. Patient states understanding. 2. Electrolytes. Mild hypokalemia and hyponatremia. These are secondary to #1 , again with correction on dialysis. 3. Acid-base balance. This is stable with an anion gap, with correction on dialysis. 4. Anemia. This is partially corrected, having received several units of packed red blood cells upon his admission. 5. Hypertension. This is now controlled. I would like to thank you for allowing us to follow with this patient. Dictated by DAVIDSON Pittman for Kwan Bangura MD Patient seen, data reviewed, discussed with Luis Angel Loredo on 01/31/17. I agree with the above assessment and plan of care. cc: DAVIDSON Pittmna MD [facility]
[2017-01-31] MEDS: SODIUM BICARBONATE 8.4% 150 MEQ in D5W 1,000 ML IV SCH (11:21)
[2017-01-31 12:02] LABS: HEPATITIS PROFILE ACUTE SEE COMMENTS
[2017-01-31 12:11] LABS: CALCIUM 5.5 mg/dL (8.8-10.2)
[2017-01-31] MEDS ORDERED: DIPRIVAN 1% ONE (13:29)
[2017-01-31] MEDS ORDERED: XYLOCAINE-MPF 2% ONE (13:34)
[2017-01-31] MEDS ORDERED: NS 2,000 ML ONE (13:58)
[2017-01-31] MEDS ORDERED: KEFZOL 1 GM/D5W 1 GM/50 ML IVPB ONE (14:08)
[2017-01-31] MEDS ORDERED: HEPARIN ONE ×2 (14:15)
[2017-01-31] MEDS ORDERED: XYLOCAINE 1% ONE (14:15)
[2017-01-31] MEDS ORDERED: NS 250 ML ONE (14:15)
[2017-01-31] MEDS ORDERED: VERSED ONE (14:17)
[2017-01-31] MEDS ORDERED: NS 1,000 ML ONE (16:03)
--- NOTE | 2017-01-31 18:45 | CONSULTATION ---
DATE OF CONSULTATION: 01/30/2017 REASON FOR CONSULTATION: CKD 5. HISTORY: This is a 46-year-old, who has known IgA nephropathy. He has been followed but been poorly compliant with treatment. He now has progressed to end-stage renal disease with creatinine over 20. I have been asked to place a tunneled catheter to start him immediately on dialysis. PAST HISTORY: Pertinent for the IgA nephropathy. Hypertension, nephrotic syndrome, anemia of chronic disease. Iron deficiency anemia. He has no surgery noted. SOCIAL HISTORY: Denies alcohol, drug use or smoking. He does live with his family and has an attentive family. MEDICATIONS: Listed. ALLERGIES: He has no known drug allergies. REVIEW OF SYSTEMS: Otherwise negative. PHYSICAL EXAM: Vital Signs: Afebrile. Heart rate 99, respiratory rate 12, blood pressure 161/95. Neck: No clavicular distortion and neck veins are evident. No evidence of previous IVs. Lungs: Bilateral breath sounds. Heart: Regular rate and rhythm. Abdomen: Soft. Extremities: Trace peripheral edema. Neuro: He is awake and alert. ASSESSMENT: Chronic kidney disease 5. PLAN: Will plan a right-sided tunnel catheter. I have discussed it with him. He understands and agrees to proceed. cc: Titus Roy MD
--- NOTE | 2017-01-31 18:52 | OPERATIVE NOTE ---
PROCEDURE DATE: PROCEDURES: Placement of right-sided tunnel dialysis catheter. This is under ultrasound and fluoroscopic guidance. SURGEON: Titus Roy MD HUMAN RESOURCES MGR: Coty Sher PREOPERATIVE DIAGNOSIS: Chronic kidney disease 5. POSTOPERATIVE DIAGNOSIS: Chronic kidney disease 5. DESCRIPTION OF PROCEDURE: Satisfactory monitoring anesthesia care was established. IV sedation accomplished. The right side of the neck and upper anterior chest were prepped and draped in a sterile fashion. We imaged the right internal jugular vein. Found it to be patent. We anesthetized the skin on the neck, and made a small stab incision. We accessed the right internal jugular vein under direct visualization and passed the guidewire under fluoroscopic guidance into the superior vena cava. We then anesthetized the skin below the clavicle, and anesthetized the subcutaneous tunnel between the infraclavicular incision into the supraclavicular incision. We tunneled the 24 cm precurved catheter from the infracolic infraclavicular incision to the supraclavicular incision. We positioned the cuff near the exit site. We then dilated the tract sequentially, and passed the dilator and introducer sheath over the guidewire. We removed the dilator and guidewire, and introduced the split catheter through the sheath into the superior vena cava, to the right atrium. We were able to aspirate and irrigated easily. We ultimately gave 5000 units of heparin per mL. We put 1.8 mL in one lumen and 1.7 mL in the other lumen. We secured the flange to the skin with 3-0 nylon. We closed the skin of the neck incision with a 4-0 Polysorb subcuticular stitch, and placed 1 simple 4-0 Polysorb stitch at the exit site as well. Sterile OpSite were applied. He tolerated it well, and was sent to the recovery room in satisfactory condition. cc: MD Dr. Sveta Mccloud
[2017-01-31] MEDS: NORCO-7.5 PO PRN (19:08)
[2017-02-01] MEDS: NORCO-7.5 PO PRN (04:52)
[2017-02-01] MEDS: SODIUM BICARBONATE 8.4% 150 MEQ in D5W 1,000 ML IV SCH ×2 (04:53→16:18)
[2017-02-01 05:44] LABS: HEMATOCRIT 24.5 % (42.0-52.0); HEMOGLOBIN 8.7 g/dL (14.0-18.0); MCHC 35.5 g/dL (33-37); MCV 87.2 FL (81-99); MPV 10.1 FL (7.4-10.4); RBC 2.81 XMIL (4.7-6.1)
[2017-02-01 06:30] LABS: ALBUMIN 3.3 g/dL (3.5-5.0); POTASSIUM 3.2 mmol/L (3.5-5.1)
[2017-02-01] MEDS ORDERED: TIGHT: 0.2 ML/HR MISC PRN (06:47)
[2017-02-01] MEDS ORDERED: NS 2,000 ML MISC PRN (06:47)
[2017-02-01] MEDS ORDERED: HEPARIN IV PRN (06:47)
[2017-02-01] MEDS: ZOFRAN IV PRN ×3 (08:39→20:33)
--- NOTE | 2017-02-01 08:56 | PROGRESS NOTE ---
DATE: 02/01/2017 SUBJECTIVE: Mr. Major has had nausea this morning. He had an emesis basin. Not able to eat any of his breakfast. I think he had some pain medicine yesterday and last night without any p.o. intake. He had his catheter placed, right subclavian, and is scheduled for dialysis today. He remains afebrile. OBJECTIVE: Temperature 98.3 degrees, pulse 100, respirations 14, blood pressure 154/99. Pupils are equal, round. Lungs are clear in all lung zayas. Cardiovascular: Regular rhythm and rate without murmur or S3. Abdomen is soft. Skin is warm and dry. The urine output from yesterday about 2200. PERTINENT LABORATORY FROM TODAY: White count 8510, hematocrit was 24, platelet count 188,000. Chemistries: Potassium still low. Sodium 137, potassium 3.2, chloride 86. Bicarb is 29. BUN 101, creatinine 16.5. Dr. Roy placed a right-sided tunneled dialysis catheter. ASSESSMENT AND PLAN: 1. [id number] renal failure. Most likely, it is IgA nephropathy. Going to initiate dialysis tunnel catheter in place. 2. Electrolytes acid base, stable. He has a lot of nausea, feels bad in general just from his azotemia. Note, blood pressure running 140-160/84-99. He is on amlodipine 5 mg b.i.d. I suspect the blood pressure will come down with dialysis. cc: Gavin Tucker MD
[2017-02-01] MEDS: NORVASC PO SCH ×2 (10:30→20:31)
--- NOTE | 2017-02-01 15:25 | PROGRESS NOTE ---
DATE: 02/01/2017 TIME SEEN: 0755. SUBJECTIVE: Mr. Major is resting quietly in bed. He has no complaints. His skin is warm and dry. States that he tolerated dialysis well yesterday. He is nauseated this morning secondary to having been given pain medication. OBJECTIVE: Vital signs: His most recent vital signs are temperature 98.3 degrees, blood pressure 154/99, heart rate 103, respirations are 14. He remains on room air. Last recorded saturation 93%. He has had 2075 in, he has had 1005 out with a minimal pull of 1 L on dialysis yesterday. General: This is a 46-year-old white male. He is currently resting in bed. He is in no acute distress. Skin: Warm and dry. HEENT: Normocephalic, atraumatic. Conjunctivae pale. He has CHANTELL. Mucous membranes are moist. Neck: Supple. Trachea midline. No JVD. Cardiovascular: Regular rate and rhythm. He has no murmur or gallop appreciated. Lungs: Clear to auscultation anteriorly. Equal excursion on room air. Abdomen: Soft, nontender. Positive bowel sounds. Extremities: Have no edema. No clubbing or cyanosis. Integumentary: No rashes or lesions evident. Neurological: Alert and oriented x3. DIAGNOSTIC DATA: Sodium is 137, potassium 3.2, chloride is 86, CO2 29. BUN 101 , creatinine 16.5, glucose 110. His anion gap is 22, calcium remains at 6, phosphorus of 8. Albumin 3.3. White count 8.51, hemoglobin 8.7, hematocrit 24.5, with a platelet count of 188,000. ASSESSMENT AND PLAN: 1. Chronic kidney disease stage 5. Patient has had no urine out in the last 4 days. We have started him on hemodialysis per tunnel catheter to the right chest wall. He did tolerate his 1st dialysis treatment yesterday well. We will plan for dialysis today and tomorrow. We will place him on a 3K bath. He is to dialyze for 3 hours. We will attempt to pull patient 1 L or even. Again, we will plan for dialysis tomorrow. After dialysis at this point, we will attempt to set him up for outpatient dialysis. It is okay from our perspective for him to be discharged after that and followed on the outpatient basis at the [facility]. 2. Electrolytes and acid-base balance. His acidosis is slowly improving and his hypokalemia is slowly improving. Again, he is to have dialysis today with assistance from dialysis for improvement. 3. Anemia. This is partially corrected secondary to receiving blood transfusion. We will start patient on erythropoietin upon discharge. 4. Hypertension. This is now controlled. I would to thank you for allowing us to follow with this patient. Dictated by DAVIDSON Pittman for Kwan Bangura MD Patient seen, data reviewed, discussed with Luis Angel Loredo on 02/01/17. I agree with the above assessment and plan of care. cc: DAVIDSON Pittman MD [facility]
[2017-02-01 16:53] LABS: URINE CULTURE NEEDED? NO; URINE SOURCE CLEAN CATCH
[2017-02-01 17:08] LABS: BILIRUBIN URINE NEGATIVE (NEGATIVE); BLOOD URINE SMALL (NEGATIVE); COLOR YELLOW; GLUCOSE URINE NEGATIVE (NEGATIVE); LEUKOCYTES URINE NEGATIVE (NEGATIVE); NITRITE URINE NEGATIVE (NEGATIVE); PH URINE 6.5; PROTEIN URINE 300 mg/dL (NEGATIVE); SP GRAVITY URINE 1.008; TURBIDITY URINE CLEAR (CLEAR); UROBILINOGEN URINE NORMAL (NORMAL)
[2017-02-01 17:10] LABS: URINE MICRO REVIEW NEEDED? YES
[2017-02-01 17:20] LABS: UR EPITHELIAL CELLS <10 /HPF (<10); URINE BACTERIA NEGATIVE /HPF; URINE RBC <10 /HPF (<10); URINE WBC <10 /HPF (<10)
[2017-02-01 17:26] LABS: UR AMPHETAMINES QUAL NONE DETECTED (NONE DETECT); UR BARBITUATES QUAL NONE DETECTED (NONE DETECT); UR BENZODIAZEPIN QUAL NONE DETECTED (NONE DETECT); UR CANNABINOIDS QUAL NONE DETECTED (NONE DETECT); UR COCAINE QUAL NONE DETECTED (NONE DETECT); UR METHADONE QUAL NONE DETECTED (NONE DETECT); UR OPIATES QUAL NONE DETECTED (NONE DETECT); UR OXYCODONE QUAL NONE DETECTED (NONE DETECT); UR PCP QUAL NONE DETECTED (NONE DETECT)
[2017-02-01 17:35] LABS: URINE CASTS GRANULAR PRESENT
[2017-02-02 05:52] LABS: MAGNESIUM 1.8 mg/dL (1.5-2.7); POTASSIUM 3.4 mmol/L (3.5-5.1)
[2017-02-02 06:06] LABS: CALCIUM 6.4 mg/dL (8.8-10.2)
[2017-02-02] MEDS ORDERED: NS 2,000 ML MISC PRN (07:04)
[2017-02-02] MEDS ORDERED: TIGHT: 0.2 ML/HR MISC PRN (07:04)
[2017-02-02] MEDS ORDERED: HEPARIN IV PRN (07:04)
[2017-02-02] MEDS ORDERED: NS 2,000 ML ONE (07:25)
[2017-02-02] MEDS ORDERED: HEPARIN ONE (07:25)
[2017-02-02] MEDS: ZOFRAN IV PRN (08:23)
[2017-02-02] MEDS ORDERED: VENOFER 200 MG in NS 150 ML IV SCH (09:00)
[2017-02-02] MEDS ORDERED: COREG PO SCH (10:00)
--- NOTE | 2017-02-02 10:06 | PROGRESS NOTE ---
DATE: 02/02/2017 SUBJECTIVE: He had some nausea after his dialysis treatment yesterday. No headache, no vomiting, no cramping. OBJECTIVE: Vital Signs: Blood pressure 173/107, heart rate 112, respirations 12, temperature 99.3 degrees. General: He is in no acute distress. Skin: Warm and dry. Eyes: Conjunctivae are pink. Neck: Neck veins are distended. Heart: Regular without gallops, or murmurs, or rubs. Lungs: Have equal breath sounds. No crackles or wheezes. Abdomen: Soft, nontender. Bowel sounds present. Extremities: Have no edema, clubbing, or cyanosis. LABORATORY DATA: Sodium 138, potassium 3.4, chloride 93, bicarbonate 34, BUN 54, creatinine 10.5, calcium 6.4. Hemoglobin 8.7. IMPRESSION AND PLAN: 1. End-stage kidney disease. He is receiving his third dialysis treatment today. From my perspective, if he is ambulatory and has no vomiting, he can go home after dialysis today. 2. Electrolytes: His hyperphosphatemia has been progressively improving, and his calcium is somewhat low. Will begin Tums 2 with each meal. 3. Acid-base: We will change his dialysis bicarbonate to 30. 4. Anemia. I began IV Venofer today. We will continue that as an outpatient. cc: Kwan Bangura MD
[2017-02-02] MEDS ORDERED: PHOSLO PO SCH (12:00)
[2017-02-02] MEDS: NORVASC PO SCH (13:17)
[2017-02-02] MEDS ORDERED: ZOFRAN PO PRN (14:53)
[2017-02-02 15:43] VITALS: BP 172/107
--- NOTE | 2017-02-03 06:45 | DISCHARGE SUMMARY ---
ADMISSION DATE: 01/29/2017 DISCHARGE DATE: 02/02/2017 CONSULTATIONS: 1. Dr. Moe Bautista with Cardiology. 2. Dr. Kwan Bangura with Nephrology. 3. Dr. Titus Roy with General Surgery. PERTINENT PROCEDURES: 1. Chest x-ray showed left basilar atelectasis with possibility of underlying infiltrate and small left pleural effusion. 2. Echocardiogram showed an ejection fraction of 50%. 3. Renal ultrasound showed severe bilateral hypoechogenic kidneys, compatible with chronic medical renal disease. 4. Placement of a right-sided tunneled dialysis catheter, performed by Dr. Titus Roy. DISCHARGE DIAGNOSES: 1. End-stage renal disease, status post tunneled hemodialysis catheter, receiving hemodialysis treatment for the 3rd time today. He has been set up with Dr. Bangura after his discharge today, to continue his hemodialysis. He will be discharged home. Electrolytes hyperphosphatemia progressively improving. Calcium somewhat low. He will begin Tums, two with each meal. 2. Anemia. He be given IV Venofer and will continue that as an outpatient. 3. Elevated ion gap metabolic acidosis secondary to his renal failure. Is addressed with dialysis. 4. Left-sided pleural effusion secondary to volume overload with renal failure. Again, address with dialysis. 5. Back pain with abnormal cardiac enzymes. Profile was consistent with noncardiac etiology. Back pain has resolved. 6. Hypertension. Patient will continue on Norvasc and Coreg. HOSPITAL COURSE: Mr. Major is a 46-year-old male with a history of IgA nephropathy and hypertension, which has been untreated. The patient reports has been followed by Dr. Bangura for the past few years for his IgA nephropathy. He has been on antihypertensives and steroids; however, over the past year he stopped taking his medications as he felt he was doing much better in regards to his blood pressure and his kidney numbers, but over the past 2-3 days he was complaining of mid to low back pain which was intermittent in nature and nonradiating. He went to his chiropractor for evaluation. He examined him, did blood pressure, and sent him to the ED. It was greater than 200/100. He also reported some orthopnea, paroxysmal nocturnal dyspnea, and exertional dyspnea. In the ED, he had labs and diagnostics done. His creatinine was noted to be 21.8 with a BUN of 140 and estimated GFR of 2. He was noted to be acidotic and anemic. Troponins were noted to be 0.326. CPK of 91 with a normal index and a proBNP of greater than 35,000. EKG did not show any signs of ischemia. Otherwise, left ventricular hypertrophy was noted. Chest x- ray showed small left pleural effusion. Given the severity of his renal failure , he was put in the [facility] with a consult for Dr. Bangura. He had underwent an echo and renal ultrasound, along with cardiology consult. He had not been seen in Dr. Bangura's office in the past year secondary to cancellations and being noncompliant with medications. They started IV fluid resuscitation. Awaiting urine electrolytes. There was no improvement overnight. Had a tunnelled catheter placed for initiation of hemodialysis. He was given 2 units of PRBC and he was initiated on p.o. blood pressure medications. Patient's BUN and creatinine continued to be elevated. He had no urine output. He had a right side tunneled dialysis catheter placed by Dr. Roy and underwent hemodialysis. Today will be his 3rd session with hemodialysis. He has tolerated well and will be discharged today after dialysis. DISCHARGE DIET: Renal. DISCHARGE MEDICATIONS: Will be as per Dr. Ezra Medley. FOLLOWUP: Mr. Major is being discharged home. He will followup with his primary care physician, Dr. Hillary Yin, and he will continue on his regular scheduled hemodialysis that has been set up with Dr. Bangura. He has been educated on the importance of medical compliance in regards to his blood pressure, as well as his kidneys. He can return to the ED for any worsening of symptoms. Time discharging this patient: 35 minutes Dictated by DAVIDSON Lagunas for Ezra Medley MD cc: MD KAYLEY Verde
== END 2017-02-02 16:35 | disposition home or self-care (01) ==
LOC: ED 08:56 → 3S 11:42 → SUATTDRO 11:42
PROVIDERS: ATTEND Internal Medicine